=== PATIENT | female | born 1995 | race Caucasian/White ===

== ENCOUNTER 2021-11-04 15:57 | Inpatient (IN) | payer MEDICAID ==
[~2021-11-04] VITALS: Ht 160 cm; Wt 96.2 kg
[2021-11-04] MEDS ORDERED: DIVA-80 PO (16:27)
[2021-11-04] MEDS ORDERED: OLAN10TA74 PO (16:27)
[2021-11-04] MEDS ORDERED: BENZ1TAB10 PO (16:27)
[2021-11-04] MEDS ORDERED: LITH300C3 PO (16:27)
[2021-11-04 20:29] VITALS: BP 141/95
[2021-11-04] MEDS ORDERED: INFLUENZA VIRUS VACCINE QVS 2021-22 (6MO+)/PF 60 MCG/0.5 ML SYRINGE IM. ONE (20:30)
[2021-11-04] MEDS: ZOLPIDEM TARTRATE 10 MG TABLET PO PRN (22:08)
[2021-11-05 01:04] VITALS: BP 132/84
[2021-11-05 08:24] LABS: BASOPHILS % (AUTO) 0.4 % (0.0-2.0); EOSINOPHILS % (AUTO) 1.8 % (1.0-6.0); HEMATOCRIT 41.3 % (36-46); HEMOGLOBIN 14.3 g/dL (12.0-16.0); LYMPHOCYTES % (AUTO) 36.2 % (22.0-44.0); MEAN CORPUSCULAR HGB CONC 34.6 G/dL (31.0-37.0); MEAN CORPUSCULAR VOLUME 95 fL (80-100); MONOCYTES # (AUTO) 0.8 K/uL (0.1-1.0); MONOCYTES % (AUTO) 9.2 % (2.0-9.0); NEUTROPHILS # (AUTO) 4.4 K/uL (1.8-7.7); NEUTROPHILS % (AUTO) 52.4 % (40.0-70.0); PLATELET COUNT (AUTO) 302 K/uL (150-450); RED BLOOD CELL COUNT(AUTO) 4.33 MIL/uL (4.00-5.20); RED CELL DISTRIBUTION WIDTH 13.9 % (11.5-14.5)
[2021-11-05 08:40] LABS: HEMOGLOBIN A1C 5.6 % (3.8-5.6)
[2021-11-05 08:44] LABS: ALANINE AMINOTRANSFERASE 37 U/L (12-78); ALBUMIN 3.8 g/dL (3.4-5.0); ALKALINE PHOSPHATASE 58 U/L (46-116); ANION GAP 10 mmol/L (8-16); ASPARTATE AMINOTRANSFERASE 36 U/L (15-37); BILIRUBIN,TOTAL 0.3 mg/dL (0.1-1.0); CALCIUM, TOTAL 9.1 mg/dL (8.8-10.5); CARBON DIOXIDE 28 mmol/L (22-29); CHLORIDE 102 mmol/L (98-107); CHOLESTEROL 153 mg/dL (131-200); CREATININE 0.77 mg/dL (0.60-1.30); FREE T4 (FREE THYROXINE) 1.25 ng/dL (0.76-1.46); GLOMERULAR FILTR. RATE CALC > 60 mL/min (>60); GLUCOSE,RANDOM 92 mg/dL (70-110); HCG,QUANTITATIVE < 1 mIU/mL (0-6); HDL CHOLESTEROL 38 mg/dL (40-60); LDL CHOL (CALC.) 88 mg/dL (0-130); POTASSIUM 3.7 mmol/L (3.5-5.1); SODIUM SERUM 140 mmol/L (136-145); THYROID STIMULATING HORMONE 4.14 uIU/mL (0.36-3.74); TOTAL PROTEIN, SERUM 7.8 g/dL (6.4-8.2); TRIGLYCERIDES 133 mg/dL (15-150); UREA NITROGEN, BLOOD 6 mg/dL (7-18)
[2021-11-05] MEDS ORDERED: ACETAMINOPHEN 325 MG TABLET PO PRN (09:45)
[2021-11-05] MEDS ORDERED: MAGNESIUM HYDROXIDE SUSPENSION 30 ML UDCUP PO PRN (09:45)
[2021-11-05] MEDS ORDERED: NICOTINE 14 MG/24 HOUR PATCH TD PRN (09:45)
[2021-11-05] MEDS ORDERED: LOPERAMIDE HCL 2 MG CAPSULE PO PRN (09:45)
[2021-11-05] MEDS ORDERED: ALBUTEROL SULFATE HFA 90 MCG/PUFF 8 GM INHALER IH PRN (09:45)
[2021-11-05] MEDS ORDERED: DOCUSATE SODIUM 100 MG CAPSULE PO PRN (09:45)
[2021-11-05] MEDS ORDERED: GuaiFENesin/D-METHORPHAN [SUGAR-FREE] 200-20MG/10 ML SYRUP UDCUP PO PRN (09:45)
[2021-11-05] MEDS ORDERED: ONDANSETRON HCL 4 MG TABLET PO PRN (09:45)
[2021-11-05] MEDS ORDERED: CloNIDine HCL 0.1 MG TABLET PO PRN (09:45)
[2021-11-05] MEDS ORDERED: PETROLATUM,WHITE 28 GM JELLY TP PRN (09:45)
[2021-11-05] MEDS ORDERED: MAG HYDROX/AL HYDROX/SIMETH ES 30 ML SUSPENSION UDCUP PO PRN (09:45)
[2021-11-05 10:32] VITALS: BP 127/76
[2021-11-05 16:04] VITALS: BP 141/83
[2021-11-05] MEDS: OLANZapine 10 MG TABLET PO SCH (20:51)
[2021-11-05] MEDS: DIVALPROEX SODIUM 500 MG ER TABLET PO SCH (20:51)
[2021-11-05 21:19] VITALS: BP 130/81
[2021-11-05] MEDS: IBUPROFEN 400 MG TABLET PO PRN (21:21)
[2021-11-05] MEDS: ZOLPIDEM TARTRATE 10 MG TABLET PO PRN (21:45)
[2021-11-06 00:41] VITALS: BP 134/79
[2021-11-06 08:08] VITALS: BP 144/78
[2021-11-06] MEDS: HALOPERIDOL 5 MG TABLET PO PRN ×2 (10:24→16:18)
[2021-11-06] MEDS: LORazepam 2 MG TABLET PO PRN ×3 (10:24→20:19)
[2021-11-06 16:00] VITALS: BP 110/74
[2021-11-06] MEDS: DIVALPROEX SODIUM 500 MG ER TABLET PO SCH (20:02)
[2021-11-06] MEDS: OLANZapine 10 MG TABLET PO SCH (20:02)
[2021-11-06] MEDS: ZOLPIDEM TARTRATE 10 MG TABLET PO PRN (20:19)
[2021-11-07 07:01] VITALS: BP 114/80
[2021-11-07] MEDS: LORazepam 2 MG TABLET PO PRN ×2 (07:54→15:57)
[2021-11-07 10:59] VITALS: BP 104/73
[2021-11-07 16:04] VITALS: BP 118/74
[2021-11-07] MEDS: HALOPERIDOL 5 MG TABLET PO PRN (16:29)
[2021-11-07] MEDS: ZOLPIDEM TARTRATE 10 MG TABLET PO PRN (20:21)
[2021-11-07] MEDS: OLANZapine 10 MG TABLET PO SCH (20:21)
[2021-11-07] MEDS: DIVALPROEX SODIUM 500 MG ER TABLET PO SCH (20:21)
[2021-11-08 04:05] VITALS: BP 112/68
[2021-11-08] MEDS ORDERED: LORazepam 2 MG/ML VIAL ONE (07:33)
[2021-11-08] MEDS ORDERED: HALOPERIDOL LACTATE 5 MG/ML VIAL ONE (07:34)
[2021-11-08] MEDS ORDERED: DiphenhydrAMINE HCL 50 MG/ML VIAL ONE (07:34)
[2021-11-08] MEDS ORDERED: DiphenhydrAMINE HCL 50 MG/ML VIAL IM ONE (07:45)
[2021-11-08] MEDS ORDERED: HALOPERIDOL LACTATE 5 MG/ML VIAL IM ONE (07:45)
[2021-11-08] MEDS ORDERED: LORazepam 2 MG/ML VIAL IM ONE (07:45)
[2021-11-08 08:25] VITALS: BP 119/80
[2021-11-08] MEDS: LORazepam 2 MG TABLET PO PRN (13:14)
[2021-11-08 16:26] VITALS: BP 128/83
[2021-11-08] MEDS: OLANZapine 10 MG TABLET PO SCH (20:16)
[2021-11-08] MEDS: DIVALPROEX SODIUM 500 MG ER TABLET PO SCH (20:16)
[2021-11-09] MEDS ORDERED: LORazepam 2 MG/ML VIAL ONE (05:41)
[2021-11-09] MEDS ORDERED: HALOPERIDOL LACTATE 5 MG/ML VIAL ONE (05:41)
[2021-11-09] MEDS ORDERED: DiphenhydrAMINE HCL 50 MG/ML VIAL ONE (05:42)
[2021-11-09] MEDS ORDERED: DiphenhydrAMINE HCL 50 MG/ML VIAL IM ONE ×2 (05:45→16:00)
[2021-11-09] MEDS ORDERED: HALOPERIDOL LACTATE 5 MG/ML VIAL IM ONE ×2 (05:45→16:00)
[2021-11-09] MEDS ORDERED: LORazepam 2 MG/ML VIAL IM ONE ×2 (05:45→16:00)
[2021-11-09 06:07] VITALS: BP 123/94
[2021-11-09] MEDS: LORazepam 2 MG TABLET PO PRN ×2 (08:39→15:53)
[2021-11-09] MEDS: HALOPERIDOL 5 MG TABLET PO PRN ×2 (08:40→15:53)
[2021-11-09 08:41] VITALS: BP 138/74
[2021-11-09 17:01] VITALS: BP 121/87
[2021-11-09] MEDS: DIVALPROEX SODIUM 500 MG ER TABLET PO SCH (20:27)
[2021-11-09] MEDS: OLANZapine 10 MG TABLET PO SCH (20:27)
[2021-11-09] MEDS: ZOLPIDEM TARTRATE 10 MG TABLET PO PRN (20:28)
[2021-11-10 06:17] VITALS: BP 126/80
[2021-11-10] MEDS: IBUPROFEN 400 MG TABLET PO PRN (07:00)
[2021-11-10] MEDS: LORazepam 2 MG TABLET PO PRN ×2 (08:17→13:00)
[2021-11-10 08:28] VITALS: BP 118/82
[2021-11-10 17:10] VITALS: BP 120/84
[2021-11-10] MEDS: ZOLPIDEM TARTRATE 10 MG TABLET PO PRN (20:17)
[2021-11-10] MEDS: OLANZapine 10 MG TABLET PO SCH (20:17)
[2021-11-10] MEDS: DIVALPROEX SODIUM 500 MG ER TABLET PO SCH (20:20)
[2021-11-11 06:49] VITALS: BP 136/84
[2021-11-11 08:17] VITALS: BP 121/76
[2021-11-11] MEDS ORDERED: HALOPERIDOL LACTATE 5 MG/ML VIAL ONE (08:31)
[2021-11-11] MEDS ORDERED: DiphenhydrAMINE HCL 50 MG/ML VIAL ONE (08:31)
[2021-11-11] MEDS ORDERED: LORazepam 2 MG/ML VIAL ONE (08:31)
[2021-11-11] MEDS ORDERED: LORazepam 2 MG/ML VIAL IM ONE ×2 (08:45→09:45)
[2021-11-11] MEDS ORDERED: HALOPERIDOL LACTATE 5 MG/ML VIAL IM ONE ×2 (08:45→09:45)
[2021-11-11] MEDS ORDERED: DiphenhydrAMINE HCL 50 MG/ML VIAL IM ONE ×2 (08:45→09:45)
[2021-11-11] MEDS: OLANZapine 10 MG TABLET PO SCH ×2 (11:00→20:19)
[2021-11-11] MEDS: LORazepam 2 MG TABLET PO PRN (16:23)
[2021-11-11] MEDS: DIVALPROEX SODIUM 500 MG ER TABLET PO SCH (20:19)
[2021-11-12] MEDS: OLANZapine 10 MG TABLET PO SCH ×2 (08:30→20:00)
[2021-11-12] MEDS: LORazepam 2 MG TABLET PO PRN ×2 (08:30→17:02)
[2021-11-12] MEDS: HALOPERIDOL 5 MG TABLET PO PRN (09:07)
[2021-11-12 16:26] VITALS: BP 118/89
[2021-11-12] MEDS: ZOLPIDEM TARTRATE 10 MG TABLET PO PRN (20:00)
[2021-11-12] MEDS: DIVALPROEX SODIUM 500 MG ER TABLET PO SCH (20:00)
[2021-11-13 08:07] VITALS: BP 119/68
[2021-11-13] MEDS: OLANZapine 10 MG TABLET PO SCH ×2 (08:11→20:18)
[2021-11-13] MEDS: LORazepam 2 MG TABLET PO PRN ×2 (08:18→14:49)
[2021-11-13] MEDS: HALOPERIDOL 5 MG TABLET PO PRN (15:48)
[2021-11-13 16:08] VITALS: BP 126/80
[2021-11-13] MEDS: DIVALPROEX SODIUM 500 MG ER TABLET PO SCH (20:18)
[2021-11-13] MEDS: ZOLPIDEM TARTRATE 10 MG TABLET PO PRN (20:18)
[2021-11-14 05:38] VITALS: BP 121/78
[2021-11-14 08:08] VITALS: BP 124/70
[2021-11-14] MEDS: OLANZapine 10 MG TABLET PO SCH ×2 (08:54→20:17)
[2021-11-14] MEDS: LORazepam 2 MG TABLET PO PRN ×2 (08:56→15:35)
[2021-11-14] MEDS: HALOPERIDOL 5 MG TABLET PO PRN (15:35)
[2021-11-14 16:06] VITALS: BP 122/85
[2021-11-14] MEDS: DIVALPROEX SODIUM 500 MG ER TABLET PO SCH (20:17)
[2021-11-14] MEDS: ZOLPIDEM TARTRATE 10 MG TABLET PO PRN (20:17)
[2021-11-15 08:12] VITALS: BP 113/69
[2021-11-15] MEDS: OLANZapine 10 MG TABLET PO SCH ×2 (08:14→20:19)
[2021-11-15] MEDS: LORazepam 2 MG TABLET PO PRN ×2 (08:14→16:07)
[2021-11-15] MEDS: HALOPERIDOL 5 MG TABLET PO PRN ×2 (10:59→16:07)
[2021-11-15 16:34] VITALS: BP 128/93
[2021-11-15] MEDS: DIVALPROEX SODIUM 500 MG ER TABLET PO SCH (20:18)
[2021-11-15] MEDS: ZOLPIDEM TARTRATE 10 MG TABLET PO PRN (20:19)
[2021-11-16 06:45] VITALS: BP 124/94
[2021-11-16] MEDS: OLANZapine 10 MG TABLET PO SCH ×2 (08:14→20:17)
[2021-11-16] MEDS: HALOPERIDOL 5 MG TABLET PO PRN (10:02)
[2021-11-16] MEDS: LORazepam 2 MG TABLET PO PRN ×2 (10:02→15:03)
[2021-11-16 16:55] VITALS: BP 104/73
[2021-11-16] MEDS: ZOLPIDEM TARTRATE 10 MG TABLET PO PRN (20:17)
[2021-11-16] MEDS: DIVALPROEX SODIUM 500 MG ER TABLET PO SCH (20:17)
[2021-11-17 00:55] VITALS: BP 108/66
[2021-11-17 08:16] VITALS: BP 110/68
[2021-11-17] MEDS: OLANZapine 10 MG TABLET PO SCH ×2 (09:00→20:15)
[2021-11-17] MEDS: LORazepam 2 MG TABLET PO PRN ×2 (09:29→14:03)
[2021-11-17] MEDS: HALOPERIDOL 5 MG TABLET PO PRN (11:16)
[2021-11-17 16:21] VITALS: BP 106/80
[2021-11-17] MEDS: DIVALPROEX SODIUM 500 MG ER TABLET PO SCH (20:15)
[2021-11-18 08:43] VITALS: BP 110/68
[2021-11-18] MEDS: OLANZapine 10 MG TABLET PO SCH ×2 (08:46→20:15)
[2021-11-18] MEDS: LORazepam 2 MG TABLET PO PRN ×2 (09:47→15:56)
[2021-11-18] MEDS: HALOPERIDOL 5 MG TABLET PO PRN (13:05)
[2021-11-18 16:16] VITALS: BP 112/73
[2021-11-18] MEDS: DIVALPROEX SODIUM 500 MG ER TABLET PO SCH (20:15)
[2021-11-19 06:43] VITALS: BP 110/64
[2021-11-19] MEDS: LORazepam 2 MG TABLET PO PRN ×2 (08:34→17:16)
[2021-11-19] MEDS: OLANZapine 10 MG TABLET PO SCH ×2 (08:34→20:12)
[2021-11-19 08:38] VITALS: BP 120/77
[2021-11-19] MEDS: HALOPERIDOL 5 MG TABLET PO PRN (10:13)
[2021-11-19 16:22] VITALS: BP 119/87
[2021-11-19] MEDS: DIVALPROEX SODIUM 500 MG ER TABLET PO SCH (20:12)
[2021-11-20 06:22] VITALS: BP 136/83
[2021-11-20 08:26] VITALS: BP 120/82
[2021-11-20] MEDS: LORazepam 2 MG TABLET PO PRN (09:00)
[2021-11-20] MEDS: HALOPERIDOL 5 MG TABLET PO PRN (09:00)
[2021-11-20] MEDS: OLANZapine 10 MG TABLET PO SCH (09:00)
[2021-11-20] MEDS ORDERED: OLAN10TA74 PO (10:34)
[2021-11-20] MEDS ORDERED: DIVA-80 PO (10:34)
== END 2021-11-20 11:45 | disposition home or self-care (01) | DRG 750 ==
LOC: B3A 19:48
PROVIDERS: ADMIT Psychiatry & Neurology Psychiatry; ATTEND Psychiatry & Neurology Psychiatry
DX: F25.0 Schizoaffective disorder, bipolar type (principal); G40.909 Epilepsy, unspecified, not intractable, without status epilepticus; E66.9 Obesity, unspecified; F10.10 Alcohol abuse, uncomplicated; F12.10 Cannabis abuse, uncomplicated; Y90.9 Presence of alcohol in blood, level not specified; Z20.822 Contact with and (suspected) exposure to COVID-19; J45.909 Unspecified asthma, uncomplicated; Z79.899 Other long term (current) drug therapy; Z91.51 Personal history of suicidal behavior; Z91.010 Allergy to peanuts; Z71.51 Drug abuse counseling and surveillance of drug abuser; Z71.41 Alcohol abuse counseling and surveillance of alcoholic; Z23 Encounter for immunization; Z68.37 Body mass index [BMI] 37.0-37.9, adult
CPT/HCPCS: 80053; 80061; 80164; 83036; 84439; 84443; 84702; 85025; 87081; 90686; J1200; J1630; J2060

== ENCOUNTER 2022-02-28 13:59 | Emergency (ER) | payer MEDICAID, OTHER ==
[~2022-02-28] VITALS: Ht 165.1 cm; Wt 92.7 kg
[~2022-02-28 13:59] MED LIST: DIVA-80 PO; OLAN10TA74 PO
[2022-02-28 15:28] LABS: APPEARANCE,URINE HAZY (CLEAR); BILIRUBIN,URINE NEGATIVE (NEGATIVE); GLUCOSE, URINE (UA) NEGATIVE (NEGATIVE); LEUKOCYTE ESTERASE ,URINE SMALL (NEGATIVE); NITRATE,URINE NEGATIVE (NEGATIVE); OCCULT BLOOD,URINE NEGATIVE (NEGATIVE); PH,URINE 6.5 (5.0-8.0); PROTEIN,URINE 30-70 mg/dL (NEGATIVE); SPECIFIC GRAVITIY, URINE 1.022 (1.003-1.030)
[2022-02-28 16:10] LABS: SQUAMOUS EPITHELIAL CELL,UR Few /LPF (None Seen)
[2022-02-28 16:19] LABS: BACTERIA,URINE Rare /HPF (None Seen)
[2022-02-28 16:20] LABS: RBC,URINE 0-2 /HPF (0-2)
[2022-02-28] MEDS ORDERED: NITR100C4 PO (16:46)
[2022-02-28 17:26] VITALS: BP 128/87
== END 2022-02-28 19:38 | disposition home or self-care (01) ==
LOC: EMS 13:59
DX: N39.0 Urinary tract infection, site not specified (principal); F41.9 Anxiety disorder, unspecified; F31.9 Bipolar disorder, unspecified; F15.90 Other stimulant use, unspecified, uncomplicated; F12.90 Cannabis use, unspecified, uncomplicated; Z91.010 Allergy to peanuts
CPT/HCPCS: 81001; 84703; 99283